=== PATIENT | male | born 1975 | race Caucasian/White ===

== ENCOUNTER → 2017-01-17 | Outpatient (CLI) | payer BC, OTHER ==
[~2017-01-17] MED LIST: NAPR1TAB9 PO; ONDA4TAB7 SL
--- NOTE | 2017-01-17 16:33 | DIAGNOSTIC IMAGING REPORT ---
CERVICAL SPINE 2 OR 3 VIEWS CLINICAL HISTORY: Neck pain with arm numbness COMPARISON STUDY: 02/09/2008 FINDINGS: The prevertebral soft tissues are normal. No fractures or subluxations are visualized. There are degenerative changes most pronounced at the C4-5 and C5-6 and C6-7 levels. IMPRESSION: Moderate degenerative change. No fractures, subluxations, or destructive lesions are visualized. Electronically signed by: Sheldon Sanders M.D. 01/17/2017 4:32 PM Dictated Date/Time: 01/17/2017 4:31 PM
[2017-01-17 17:34] LABS: BASO % 0.5 %; BASO ABS # 0.03 K/uL (0-0.2); COMPLETE YES; EOS % 3.4 %; HEMATOCRIT 43.1 % (42-52); IG% 0.2 %; LYMPH % 30.3 %; LYMPH ABS # 1.89 K/uL (1.2-3.4); MEAN CELL VOLUME 93.7 fL (80-100); MEAN CORPUSCULAR HGB CONC 35.3 g/dl (32-36); MEAN PLATELET VOLUME 10.1 fL (7.4-10.4); NEUT % 60.6 %; PLATELET COUNT 213 K/uL (130-400); WHITE BLOOD COUNT 6.23 K/uL (4.8-10.8)
[2017-01-17 18:05] LABS: ALT/SGPT 37 U/L (12-78); AST/SGOT 22 U/L (15-37); BLOOD UREA NITROGEN 13 mg/dl (7-18); C-REACTIVE PROTEIN < 0.29 mg/dl (0-0.29); CALCIUM 9.3 mg/dl (8.5-10.1); CARBON DIOXIDE 26 mmol/L (21-32); CHLORIDE 106 mmol/L (98-107); GLUCOSE 129 mg/dl (70-99); POTASSIUM 3.6 mmol/L (3.5-5.1); SODIUM 141 mmol/L (136-145)
[2017-01-17 18:15] LABS: ALB/GLOB RATIO 1.2 (0.9-2); ALKALINE PHOSPHATASE 86 U/L (45-117); RHEUMATOID FACTOR < 10.0 U/mL (0-15)
== END | disposition home or self-care (01) ==
LOC: C.RAD1850 16:09 → MERGE 16:09
PROVIDERS: ATTEND Family Medicine
DX: M25.50 Pain in unspecified joint (principal); M54.2 Cervicalgia; R20.0 Anesthesia of skin

== ENCOUNTER → 2018-05-24 | Outpatient (CLI) | payer BC | END | disposition home or self-care (01) | LOC: C.PATHSPEC 13:42 | PROVIDERS: ATTEND Plastic Surgery | DX: D23.0 Other benign neoplasm of skin of lip (principal); D23.62 Other benign neoplasm of skin of left upper limb, including shoulder ==

== ENCOUNTER 2023-06-20 18:17 | Observation (INO) ==
--- NOTE | 2023-06-20 18:35 | ED Triage Note ---
Date of Service June 20, 2023 History of Present Illness This patient was briefly evaluated while in triage. An abbreviated physical exam was performed. This patient is a 47-year-old Male who presents to the ED for evaluation of RLQ abd pain. Physical Exam GENERAL: 47 year old male. In no acute distress. SKIN: No lesions or rashes. HEART: Regular rate and rhythm. LUNGS: Clear to auscultation. ABDOMEN: Bowel sounds normoactive. No guarding or rigidity. RLQ abd ttp noted. PSYCH: Patient is pleasant and answers all questions appropriately. Initial orders for labs and / or imaging were placed and patient was placed in the waiting area until a bed is available. Please see further documentation for the full ED course.
--- NOTE | 2023-06-20 19:43 | Emergency Department Note ---
Impression & Plan Acute appendicitis, Right lower quadrant abdominal pain ED Provider Note HISTORY OF PRESENT ILLNESS: Patient is a 47-year-old male presenting with right lower quadrant abdominal marvin n. Patient reports pain started yesterday and has gotten progressively worse and more persistent. He denies any history of abdominal surgeries. 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 He denies any nausea or vomiting. Last p.o. intake was 1700 tonight, with sips of water. He denies any chest pain or shortness of breath. Denies any dysuria or hematuria. Patient denies any testicular pain. ROS: as above PHYSICAL EXAM: Constitutional: Patient appears in no acute distress. HENT: Head: Normocephalic and atraumatic. Eyes: EOMI, PERRL Mouth/Throat: Mucous membranes moist. Neck: Trachea midline. Neck supple. Cardiovascular: RRR, No murmurs, rubs or gallops. Intact distal pulses. Pulmonary/Chest: No respiratory distress. Breath sounds clear and equal bilaterally. No wheezes or rales. Abdominal: Abdomen soft, no rebound or guarding. RLQ pain. Positive McBurney's point. Back: No midline spinal tenderness, no paraspinal tenderness, no CVA tenderness. Musculoskeletal: No edema, tenderness or deformity noted. Skin: Warm and dry. No rash, erythema, pallor or cyanosis Psychiatric: Appropriate mood and affect for situation. Neurological: Alert and keenly responsive. CN II-XII grossly intact, moving all extremities equally and fully. MDM: - Vitals signs showed hypertension. - History obtained via patient. Patient presents with 24 hours of right lower quadrant abdominal pain. Had subjective fevers and chills yesterday. Decreased oral intake. Reports feeling generally unwell. Denies any history of abdominal surgeries. - Chronic conditions affecting care: HTN; HLD - Differential diagnoses include, but are not limited to: appendicitis; diverticulitis; testicular torsion; ureteral calculi - Order placed for continuous cardiac monitoring. At this time, monitor showed rate of 83 bpm with normal sinus rhythm, per my interpretation. - External medical records reviewed. - Laboratory workup interpreted by myself showed normal WBC; stable electrolytes; normal lipase - CT abdomen/pelvis with IV contrast showed acute appendicitis. - Patient given IV zosyn in ER. - General surgery consulted. Taking patient to OR. ASSESSMENT AND PLAN: Diagnosis: Right lower quadrant abdominal pain; acute appendicitis Plan: to OR Past Med/Surg History Medical History Depression Hyperlipidemia Hypertension Surgical History H/O adenoidectomy H/O foot surgery L foot and pinky toe - bone spur Hx of tonsillectomy Family History Mother Depression Alcohol abuse Anxiety Gallbladder disease S/P coronary artery stent placement Grandmother Breast cancer Myocardial infarction Diabetes Grandfather Colon cancer Back problem Heart disease Aneurysm Father Back problem Hypothyroidism Denies family history of Ovarian cancer Prostate cancer Social History Smoking Status: Current some day smoker Tobacco Type: Cigars Second Hand Exposure: Yes; Do You Dip or Chew Tobacco: No; Hx Alcohol Use: Yes Alcohol Intake Frequency: Monthly or Less Hx Substance Use: No Preferred Language: Azeri Visual Impairment: No Limitations Hearing Ability: Normal Information Technology Advisor Required: No Beliefs That Will Affect Care: None marital status: Current Living Situation: Spouse current occupational status: employed 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 How many Children do You have Comment: 3 step children Feels Safe at Home: Yes Childhood Exposure to Second-Hand Smoke: Yes Diet: regular Diet Comment: regular caffeine: Yes during the past year weight has: remained stable Dental Care, Regularly: Yes Physical Activity Frequency: Daily Seatbelt Use: always Sunscreen Use: Yes Allergies Allergies Allergy/AdvReac Type Severity Reaction Status Date / Time No Known Drug Allergies Allergy Verified 06/20/23 20:03 Home Meds Home Medications Medication Instructions Recorded Confirmed multivitamin (Multiple Vitamins 1 tab PO DAILY 01/01/20 06/20/23 tablet) fexofenadine 180 mg tablet 180 mg PO DAILY PRN Allergy 03/31/23 06/20/23 Symptoms nicotine (polacrilex) 4 mg buccal 4 mg buccal Q8H PRN Smoking 03/31/23 06/20/23 mini lozenge Cessation cholecalciferol (vitamin D3) 25 25 mcg PO DAILY 05/05/23 06/20/23 mcg (1,000 unit) capsule Previous Rx's Medication Instructions Recorded bupropion HCl 300 mg 24 hr tablet, 300 mg PO QAM #30 tabs 06/05/23 extended release Results & Data (ED) Vital Signs Vital Signs - 24 hr 06/20/23 18:31 06/20/23 19:51 06/20/23 21:00 Temperature 36.9 C Temperature Source Temporal Artery Scan Pulse Rate 90 Pulse Rate [Apical] 81 83 Pulse Rhythm [Apical] Regular Respiratory Rate 19 16 18 Respiratory Effort / Characteristics Non-Labored Respiratory Depth Normal Blood Pressure 148/99 H Blood Pressure [Right Arm] 152/101 H 151/100 H Blood Pressure Mean 115 Blood Pressure Mean [Right Arm] 118 117 Pulse Oximetry 98 97 99 Oxygen Delivery Method Room Air Room Air Sepsis Recent Fever Within 48 Hours No Sepsis New/Unexplained Change in Mental Status N/A Sepsis Action Taken by Nursing No Action Required Laboratory Data 06/20/23 19:40 06/20/23 19:40 Lab Results 06/20/23 06/20/23 06/20/23 Range/Units 19:30 19:40 19:40 WBC 9.34 (4.8-10.8) K/ul RBC 4.35 L (4.70-6.10) M/uL Hgb 14.5 (14.0-18.0) g/dl Hct 41.7 L (42.0-52.0) % MCV 95.9 (80.0-100.0) fL MCH 33.3 (25.0-34.0) pg MCHC 34.8 (32.0-36.0) g/dL RDW Std Deviation 41.5 (36.4-46.3) fL RDW Coeff of Alisa 11.9 (11.5-14.5) % Plt Count 183 (130-400) K/uL MPV 10.0 (9.4-12.4) fL Immature Gran % (Auto) 0.2 % Neut % (Auto) 72.0 % Lymph % (Auto) 13.6 % [place] % (Auto) 12.6 % Eos % (Auto) 1.1 % Baso % (Auto) 0.5 % Neut # (Auto) 6.72 H (1.40-6.50) K/uL Lymph # (Auto) 1.27 (1.2-3.4) K/uL [place] # (Auto) 1.18 H (0.11-0.59) K/uL Eos # (Auto) 0.10 (0-0.50) K/uL Baso # (Auto) 0.05 (0-0.2) K/uL Immature Gran # (Auto) 0.02 (0.01-0.20) K/uL Sodium 138 (136-145) mmol/L Potassium 4.0 (3.5-5.1) mmol/L Chloride 104 (98-107) mmol/L Carbon Dioxide 27 (21-32) mmol/L Anion Gap 7 (3-11) BUN 17 (6-23) mg/dl Creatinine 1.28 (0.6-1.4) mg/dl Est Cr Clr Drug Dosing 81.5 ml/min Est GFR ( Amer) 77.3 ml/min Est GFR (Non-Af Amer) 66.7 ml/min BUN/Creatinine Ratio 13.3 (10-20) Glucose 97 (70-99(Fasting)) mg/dl Calcium 9.7 (8.6-10.3) mg/dl Total Bilirubin 1.1 H (0.2-1.0) mg/dl AST 26 (13-39) U/L ALT 38 (7-52) U/L Alkaline Phosphatase 79 (34-104) U/L Total Protein 7.6 (6.0-8.3) gm/dl Albumin 4.6 (3.4-5.0) gm/dl Globulin 3.0 (2.5-4.0) gm/dl Albumin/Globulin Ratio 1.5 (0.9-2) Lipase 14 (11-82) U/L Urine Color Yellow Urine Appearance Clear (Clear) Urine pH 6.5 (4.5-7.5) Ur Specific [place] 1.006 (1.000-1.030) Urine Protein Negative (Negative) Urine Glucose (UA) Negative (Negative) Urine Ketones Negative (Negative) Urine Blood Trace H (Negative) Urine Nitrite Negative (Negative) Urine Bilirubin Negative (Negative) Urine Urobilinogen Negative (Negative) Ur Leukocyte Esterase Trace H (Negative) Urine RBC 0-4 (0-4) /hpf Urine WBC 0-5 (0-5) /hpf Ur Epithelial Cells 0-5 (0-5) /lpf Urine Bacteria Negative (Negative) Administered Medications Discontinued Medications Piperacillin Sod/Tazobactam Sod (Zosyn) 4.5 gm in 120 mls @ 240 mls/hr IV NOW ONE Stop: 06/20/23 21:36 Last Admin: 06/20/23 21:18 Dose: 240 mls/hr Documented By: MESHA Ioversol (Optiray 320 100ml) 90 ml IV ONCE ONE Stop: 06/20/23 20:45 Last Admin: 06/20/23 20:46 Dose: 90 ml Documented By: JANENE Imaging Data Radiologist's Impression: Abdomen/Pelvis CT 06/20/23 18:36 CR Exam(s): CT ABDOMEN + PELVIS With Contrast IV Amt: 90 ml opti 320 EXAM: CT Abdomen and Pelvis With Intravenous Contrast CLINICAL HISTORY: Reason for exam: RLQ abd pain. TECHNIQUE: Axial computed tomography images of the abdomen and pelvis with intravenous contrast. CTDI is 17.77 mGy and DLP is 982.8 mGy-cm. Automated exposure control was utilized for the study. A dose lowering technique was utilized adhering to the principles of ALARA. CONTRAST: Patient received 90 ml opti 320 of IV contrast COMPARISON: No relevant prior studies available. FINDINGS: Lung bases: Unremarkable. No mass. No consolidation. ABDOMEN: Liver: Unremarkable. No mass. Gallbladder and bile ducts: Unremarkable. No calcified stones. No ductal dilation. Pancreas: Unremarkable. No mass. No ductal dilation. Spleen: Unremarkable. No splenomegaly. Adrenals: Unremarkable. No mass. Kidneys and ureters: Unremarkable. No solid mass. No hydronephrosis. Stomach and bowel: Unremarkable. No obstruction. No mucosal thickening. PELVIS: Appendix: Positive for acute appendicitis, consisting of a distended appendix measuring up to 13 mm with circumferential wall thickening and mild periappendiceal fat stranding. Bladder: Unremarkable. No mass. Reproductive: Unremarkable as visualized. ABDOMEN and PELVIS: Intraperitoneal space: Unremarkable. No free air. No significant fluid collection. Bones/joints: Displaced narrowing at L5-S1. No acute fracture. No dislocation. Soft tissues: Unremarkable. Vasculature: Unremarkable. No abdominal aortic aneurysm. Lymph nodes: Unremarkable. No enlarged lymph nodes. IMPRESSION: Positive for acute appendicitis, consisting of a distended appendix measuring up to 13 mm with circumferential wall thickening and mild periappendiceal fat stranding. Communications: Verify Receipt Electronically signed by: Mike Mcknight MD 08/22/23 21:02 PM Discharge Plan Visit Data Chief Complaint: Abdominal Pain Stated Complaint: ABD PAIN ED Provider: Norma Anders Discharge Problem: Acute appendicitis, Right lower quadrant abdominal pain Forms Stand Alone Forms: My [facility] [employer] Prescriptions Prescriptions: No Action multivitamin [Multiple Vitamins] Tablet 1 tab PO DAILY cholecalciferol (vitamin D3) 25 mcg (1,000 unit) capsule 25 mcg PO DAILY bupropion HCl 300 mg tablet extended release 24 hr 300 mg PO QAM Qty: 30 1RF fexofenadine 180 mg tablet 180 mg PO DAILY PRN (Reason: Allergy Symptoms) nicotine (polacrilex) 4 mg mini lozenge 4 mg buccal Q8H PRN (Reason: Smoking Cessation) Referrals Referrals: Macrina Joshi DO [Primary Care Provider] -
[2023-06-20 19:55] LABS: Appearance Urine Clear (Clear); Bilirubin Urine Negative (Negative); Blood Urine Trace (Negative); Color Urine Yellow; Glucose Urine UA Negative (Negative); Ketones Urine Negative (Negative); Leukocyte Esterase Urine Trace (Negative); Nitrite Urine Negative (Negative); Protein Urine Negative (Negative); Specific Gravity Urine 1.006 (1.000-1.030); Urobilinogen Urine Negative (Negative); pH Urine 6.5 (4.5-7.5)
[2023-06-20 20:00] LABS: Basophils # (auto) 0.05 K/uL (0-0.2); Basophils % (auto) 0.5 %; Eosinophils % (auto) 1.1 %; Hematocrit (blood only) 41.7 % (42.0-52.0); Hemoglobin 14.5 g/dl (14.0-18.0); Immature Granulocytes # (auto) 0.02 K/uL (0.01-0.20); Immature Granulocytes % (auto) 0.2 %; Lymphocytes # (auto) 1.27 K/uL (1.2-3.4); Lymphocytes % (auto) 13.6 %; Mean Corpuscular Hemoglobin 33.3 pg (25.0-34.0); Mean Corpuscular Hgb Conc 34.8 g/dL (32.0-36.0); Mean Corpuscular Volume 95.9 fL (80.0-100.0); Monocytes # (auto) 1.18 K/uL (0.11-0.59); Monocytes % (auto) 12.6 %; Neutrophils # (auto) 6.72 K/uL (1.40-6.50); Platelet Count 183 K/uL (130-400); RDW Coefficient of Variation 11.9 % (11.5-14.5); RDW Standard Deviation 41.5 fL (36.4-46.3); Red Blood Count 4.35 M/uL (4.70-6.10); White Blood Count 9.34 K/ul (4.8-10.8)
[2023-06-20 20:06] LABS: Bacteria Urine Negative (Negative); Epithelial Cell Urine 0-5 /lpf (0-5); WBC Urine 0-5 /hpf (0-5)
[2023-06-20 20:08] LABS: RBC Urine 0-4 /hpf (0-4)
[2023-06-20 20:15] LABS: Albumin Globulin Ratio 1.5 (0.9-2); Albumin Level 4.6 gm/dl (3.4-5.0); BUN Creatinine Ratio 13.3 (10-20); Bilirubin,Total 1.1 mg/dl (0.2-1.0); Calcium 9.7 mg/dl (8.6-10.3); Creatinine Clr Calc Pharmacy 81.5 ml/min; Est GFR (African American) 77.3 ml/min; Est GFR (Non-African American) 66.7 ml/min; Total Protein 7.6 gm/dl (6.0-8.3)
[2023-06-20] MEDS ORDERED: OPTIRAY 320 100ml IV ONE (20:44)
--- NOTE | 2023-06-20 21:04 | CT Scan Report ---
Exam(s): CT ABDOMEN + PELVIS With Contrast IV Amt: 90 ml opti 320 EXAM: CT Abdomen and Pelvis With Intravenous Contrast CLINICAL HISTORY: Reason for exam: RLQ abd pain. TECHNIQUE: Axial computed tomography images of the abdomen and pelvis with intravenous contrast. CTDI is 17.77 mGy and DLP is 982.8 mGy-cm. Automated exposure control was utilized for the study. A dose lowering technique was utilized adhering to the principles of ALARA. CONTRAST: Patient received 90 ml opti 320 of IV contrast COMPARISON: No relevant prior studies available. FINDINGS: Lung bases: Unremarkable. No mass. No consolidation. ABDOMEN: Liver: Unremarkable. No mass. Gallbladder and bile ducts: Unremarkable. No calcified stones. No ductal dilation. Pancreas: Unremarkable. No mass. No ductal dilation. Spleen: Unremarkable. No splenomegaly. Adrenals: Unremarkable. No mass. Kidneys and ureters: Unremarkable. No solid mass. No hydronephrosis. Stomach and bowel: Unremarkable. No obstruction. No mucosal thickening. PELVIS: Appendix: Positive for acute appendicitis, consisting of a distended appendix measuring up to 13 mm with circumferential wall thickening and mild periappendiceal fat stranding. Bladder: Unremarkable. No mass. Reproductive: Unremarkable as visualized. ABDOMEN and PELVIS: Intraperitoneal space: Unremarkable. No free air. No significant fluid collection. Bones/joints: Displaced narrowing at L5-S1. No acute fracture. No dislocation. Soft tissues: Unremarkable. Vasculature: Unremarkable. No abdominal aortic aneurysm. Lymph nodes: Unremarkable. No enlarged lymph nodes. IMPRESSION: Positive for acute appendicitis, consisting of a distended appendix measuring up to 13 mm with circumferential wall thickening and mild periappendiceal fat stranding. Communications: Verify Receipt Electronically signed by: Mike Mcknight MD 06/20/23 21:02 PM
[2023-06-20] MEDS ORDERED: PIPERACILLIN/TAZOBACTAM 4.5 GM/120 ML BAG IV ONE (21:07)
--- NOTE | 2023-06-20 21:29 | History & Physical Report ---
Date of Service June 20, 2023 Assessment & Plan (1) Appendicitis: Plan: Due to the patient's clinical presentation and findings on imaging we will admit the patient to the hospital proceeding as follows: Analgesia be provided Antiemetics will be provided We will hydrate with IV fluids We will initiate antibiotics. The treating emergency room physician is already started Zosyn which we will continue We will keep the patient n.p.o. We are tentatively planning on an appendectomy with Dr. Pond this evening. Additional recommendations be forthcoming based on operative findings and the patient's postoperative recovery SCDs were used for DVT prevention, no chemical means due to planned surgery The patient be a level 1 full code History of Present Illness Chief Complaint: Abdominal pain Primary Care Provider: Macrina Joshi DO This is a 47-year-old female who developed abdominal pain proximally 24 hours ago. He says the pain is primary located in the right lower quadrant without radiation. He notes the pain is worse with palpation of his abdomen and seems to be slightly better when he lies still. He has not had any fevers. He does also deny nausea or vomiting. He denies ever having any abdominal surgeries in the past Since arrival to the hospital patient has had labs and imaging which independent reviewed. A CT scan of the abdomen showed the patient had a distended appendix measuring approximate 13 mm with wall thickening and mild periappendiceal fat stranding. Labs include a CBC her white blood cell count, hemoglobin, platelet count were normal. His hematocrit was slightly low at 41.7. Chemistry profile showed sodium, potassium, BUN, and creatinine were normal. There is no elevation of patient's LFTs other than a slight elevation of the total bilirubin at 1.1. His lipase is not elevated. Urinalysis did show trace leukocyte Estrace but was otherwise not indicative of infection. At the time of my interview he was resting comfortably in bed he was in no distress. Allergies Allergy/AdvReac Type Severity Reaction Status Date / Time No Known Drug Allergies Allergy Verified 06/20/23 20:03 Home Medications Medication Instructions Recorded Confirmed Type multivitamin (Multiple Vitamins 1 tab PO DAILY 01/01/20 06/20/23 History tablet) fexofenadine 180 mg tablet 180 mg PO DAILY PRN Allergy 03/31/23 06/20/23 History Symptoms nicotine (polacrilex) 4 mg buccal 4 mg buccal Q8H PRN Smoking 03/31/23 06/20/23 History mini lozenge Cessation cholecalciferol (vitamin D3) 25 25 mcg PO DAILY 05/05/23 06/20/23 History mcg (1,000 unit) capsule bupropion HCl 300 mg 24 hr tablet, 300 mg PO QAM #30 tabs 06/05/23 06/20/23 Rx extended release Past Med/Surg History Medical History Depression Hyperlipidemia Hypertension Surgical History H/O adenoidectomy H/O foot surgery L foot and pinky toe - bone spur Hx of tonsillectomy Family History Mother Depression Alcohol abuse Anxiety Gallbladder disease S/P coronary artery stent placement Grandmother Breast cancer Myocardial infarction Diabetes Grandfather Colon cancer Back problem Heart disease Aneurysm Father Back problem Hypothyroidism Denies family history of Ovarian cancer Prostate cancer Social History Smoking Status: Current some day smoker Tobacco Type: Cigars Second Hand Exposure: Yes; Do You Dip or Chew Tobacco: No; Hx Alcohol Use: Yes Alcohol Intake Frequency: Monthly or Less Hx Substance Use: No Preferred Language: Nepalese Visual Impairment: No Limitations Hearing Ability: Normal Brick Yard Hand Required: No Beliefs That Will Affect Care: None marital status: Current Living Situation: Spouse current occupational status: employed 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 How many Children do You have Comment: 3 step children Feels Safe at Home: Yes Childhood Exposure to Second-Hand Smoke: Yes Diet: regular Diet Comment: regular caffeine: Yes during the past year weight has: remained stable Dental Care, Regularly: Yes Physical Activity Frequency: Daily Seatbelt Use: always Sunscreen Use: Yes Review of Systems Constitutional: no fever Eyes: + corrective lenses Ear, Nose, Mouth, Throat: no hearing loss Respiratory: no cough and no dyspnea Cardiovascular: no chest pain Gastrointestinal: as per Subjective / HPI Genitourinary: no dysuria Musculoskeletal: no back pain Integumentary: no rash Neurologic: no localized weakness Physical Exam Constitutional: WD/WN, vitals as above Eyes: Wears glasses ENMT: Ears: no hearing impairment and no external ear abnormality Mouth: no oropharynx abnormality Neck: trachea midline Respiratory: normal respiratory effort, lungs clear to auscultation Cardiovascular: Rate/Rhythm: regular rate and regular rhythm Gastrointestinal (Abdomen): Abdomen is soft and nondistended. It is nonrigid. Patient did have significant tenderness in the right lower quadrant over McBurney's point with palpation. He did have some slight rebound tenderness as well. Musculoskeletal: No calf tenderness Skin: no rashes Neurologic: moves all extremities Psychiatric: A+Ox3, euthymic affect Results & Data Results & Data Vital Signs (Past 12 Hours) Vital Signs Temp Pulse Pulse Resp BP BP Pulse Ox 06/20/23 21:00 83 18 151/100 H 99 06/20/23 19:51 81 16 152/101 H 97 06/20/23 18:31 36.9 C 90 19 148/99 H 98 O2 Del Method 06/20/23 21:00 06/20/23 19:51 Room Air 06/20/23 18:31 Room Air Supervising Physician Co-Signing Physician Notes Dr. Blanc above assessment and plan Patient seen in the emergency room-presenting the emergency room with acute abdominal pain Found on CT scan to have acute appendicitis Patient is for laparoscopic appendectomy possible open appendectomy We will proceed as soon as possible, he has been given IV antibiotics PG Care Time/CCT Total # of Minutes Spent Total Time Spent with Patient: Total time spent is greater than 50% in coordination of care (as documented) at patient's floor/unit and/or counseling patient: Coding Level of Care Code 90893 INT INP/OBS CARE 3/75MIN Diagnoses Appendicitis K37
[2023-06-20] MEDS ORDERED: ONDANSETRON INJ 2 MG/ML 2 ML VIAL IV PRN ×3 (21:30→23:34)
[2023-06-20] MEDS ORDERED: MoRPHine SULFATE 4 MG/ML 1 ML CARP\\VIAL IV PRN (21:30)
[2023-06-20] MEDS ORDERED: ACETAMINOPHEN 1,000 MG/100 ML VIAL IV PRN (21:30)
[2023-06-20] MEDS ORDERED: SODIUM CHLORIDE 0.9% 1000ML 1,000 ML IV SCH (21:30)
[2023-06-20] MEDS ORDERED: ePHEDrine sulfate 50 MG/ML AMP IV PRN (21:35)
[2023-06-20] MEDS ORDERED: fentaNYL citrate PF 100 MCG/2 ML VIAL IV PRN (21:35)
[2023-06-20] MEDS ORDERED: ATROPINE SULFATE 0.1 MG/ML 10ML SYR IV PRN (21:35)
--- NOTE | 2023-06-20 21:35 | Anesthesiology Consultation ---
Date of Service June 20, 2023 Assessment & Plan (1) Encounter for pre-operative examination: Chart Review Chart Review: Acceptable Risk for Surgery and Patient NOT seen in Pre Admission Testing Consults Requested none History Surgery Operation Date: 06/20/23 22:00 Proposed Procedures p Laparoscopic Appendectomy - Alexis Pond MD, FACS Height/Weight Height: 6 ft 1 in Weight: 93.4 kg Allergies Allergy/AdvReac Type Severity Reaction Status Date / Time No Known Drug Allergies Allergy Verified 06/20/23 20:03 Medications Home Medications Medication Instructions Recorded Confirmed Last Taken multivitamin (Multiple Vitamins 1 tab PO DAILY 01/01/20 06/20/23 06/20/23 14:30 tablet) fexofenadine 180 mg tablet 180 mg PO DAILY PRN Allergy 03/31/23 06/20/23 Unknown Symptoms nicotine (polacrilex) 4 mg buccal 4 mg buccal Q8H PRN Smoking 03/31/23 06/20/23 06/20/23 16:00 mini lozenge Cessation cholecalciferol (vitamin D3) 25 25 mcg PO DAILY 05/05/23 06/20/23 06/20/23 14:30 mcg (1,000 unit) capsule bupropion HCl 300 mg 24 hr tablet, 300 mg PO QAM #30 tabs 06/05/23 06/20/23 06/20/23 14:30 extended release Active Medications Generic Name Dose Route Start Last Admin Trade Name Freq PRN Reason Stop Dose Admin Piperacillin Sod/Tazobactam Sod 4.5 gm in 120 mls @ 240 mls/hr 06/20/23 21:07 06/20/23 21:18 Zosyn IV 06/20/23 21:36 240 mls/hr NOW ONE Administration Past Medical History Medical History Depression Hyperlipidemia Hypertension Past Family History Family History Mother Depression Alcohol abuse Anxiety Gallbladder disease S/P coronary artery stent placement Grandmother Breast cancer Myocardial infarction Diabetes Grandfather Colon cancer Back problem Heart disease Aneurysm Father Back problem Hypothyroidism Denies family history of Ovarian cancer Prostate cancer Past Surgical History Surgical History H/O adenoidectomy H/O foot surgery L foot and pinky toe - bone spur Hx of tonsillectomy Social History Smoking Status: Current some day smoker Do You Dip or Chew Tobacco: No Hx Alcohol Use: Yes Hx Substance Use: No Physical Exam Vital Signs Last Vital Signs Temp 98.4 F 06/20/23 18:31 Pulse 83 06/20/23 21:00 Resp 18 06/20/23 21:00 BP 151/100 H 06/20/23 21:00 Pulse Ox 99 06/20/23 21:00 O2 Del Method Room Air 06/20/23 19:51 Testing Laboratory Results 06/20/23 19:40 06/20/23 19:40 Urine Color Yellow 06/20/23 19:30 Urine Appearance Clear (Clear) 06/20/23 19:30 Urine pH 6.5 (4.5-7.5) 06/20/23 19:30 Ur Specific [place] 1.006 (1.000-1.030) 06/20/23 19:30 Urine Protein Negative (Negative) 06/20/23 19:30 Urine Glucose (UA) Negative (Negative) 06/20/23 19:30 Urine Ketones Negative (Negative) 06/20/23 19:30 Urine Nitrite Negative (Negative) 06/20/23 19:30 Ur Leukocyte Esterase Trace (Negative) H 06/20/23 19:30 Urine RBC 0-4 /hpf (0-4) 06/20/23 19:30 Urine WBC 0-5 /hpf (0-5) 06/20/23 19:30 Ur Epithelial Cells 0-5 /lpf (0-5) 06/20/23 19:30
[2023-06-20] MEDS ORDERED: fentaNYL citrate PF 100 MCG/2 ML VIAL ONE ×2 (21:36)
[2023-06-20] MEDS ORDERED: ROCURONIUM BROMIDE 10 MG/ML 5 ML VIAL IV ONE (21:37)
[2023-06-20] MEDS ORDERED: DEXAMETHASONE SOD INJ 4 MG/ML VIAL ONE (21:37)
[2023-06-20] MEDS ORDERED: MIDAZOLAM HCL 1 MG/ML 2ML VIAL ONE (21:37)
[2023-06-20] MEDS ORDERED: ONDANSETRON INJ 2 MG/ML 2 ML VIAL ONE (21:37)
[2023-06-20] MEDS ORDERED: PROPOFOL IV EMULSION 10 MG/ML 20 ML VIAL IV ONE (21:37)
[2023-06-20] MEDS ORDERED: SUCCINYLCHOLINE 100MG/5ML SYR IV ONE (21:37)
[2023-06-20] MEDS ORDERED: LIDOCAINE 2% 2 ML VIAL/AMP(20MG/ML) INFIL ONE (21:37)
[2023-06-20] MEDS ORDERED: BUPIVACAINE 0.5 % 5 MG/1 ML MPF 30ML VIAL ONE (21:41)
[2023-06-20] MEDS ORDERED: SUGAMMADEX SODIUM 200 MG/2 ML VIAL IV ONE (22:22)
[2023-06-20] MEDS ORDERED: ACETAMINOPHEN 1,000 MG/100 ML VIAL IV ONE (22:34)
--- NOTE | 2023-06-20 22:34 | Post Operative Brief Note ---
PG Immediate Post Op with CF Date of Surgery June 20, 2023 Pre & Post Diagnosis Operation Date: 06/20/23 22:00 Pre-Op Diagnosis: Appendicitis Post-Op Diagnosis: Appendicitis I identified the patient and participated in the time-out.: Yes Procedure Operation Date: 06/20/23 22:00 Actual Procedures p Laparoscopic Appendectomy(Not Applicable) - Alexis Pond MD, FACS Surgeon Alexis Pond MD, FACS Hypoid Gear Tester susi paul Estimated Blood Loss 5 Findings Consistent with Post-Op Diagnosis Acute appendicitis without abscess Specimens Specimen Description: A) Appendix
--- NOTE | 2023-06-20 22:46 | Operative Report ---
PG Post Operative Report Pre & Post Diagnosis Operation Date: 06/20/23 22:00 Pre-Op Diagnosis: Appendicitis Post-Op Diagnosis: Appendicitis I identified the patient and participated in the time-out.: Yes Procedure Operation Date: 06/20/23 22:00 Actual Procedures p Laparoscopic Appendectomy(Not Applicable) - Alexis Pond MD, FACS Surgeon Alexis Pond MD, FACS [employer]otive [employer]ision Repair Instructor susi paul Estimated Blood Loss 5 Findings Consistent with Post-Op Diagnosis Specimens Appendix Description of Procedure Patient brought in the operating room placed operating room table in the supine position Pneumatic stockings orogastric tube were placed and his abdomen was prepped and draped in usual fashion Half percent plain Marcaine was used to anesthetize all incisions Incision made above the umbilicus carried dissection down to the fascia placing a varies needle producing pneumoperitoneum 11 mm port was placed at this level the camera was then passed Under visualization a 5 mm port was placed suprapubically and a 12 mm port left lower quadrant The appendix was identified it was very large and inflamed but there was no abscess The base the appendix was transected using a Endo UMESH brown load The mesoappendix was then transected using a second Endo UMESH brown load After appropriate irrigation hemostasis the appendix was put placed into an Endobag and removed through the left lower quadrant port site All ports were then removed Fascia at the umbilicus and left lower quadrant closed using 0 Vicryl suture Skin reapproximated using subcuticular 4-0 Monocryl, Dermabond placed at the umbilicus and suprapubic area and then Steri-Strips left lower quadrant My refinery operator assistant help with prepping draping removal of the appendix and closure of the wounds Patient transferred recovery room in stable condition I attest to the content of the Intraoperative Record and any orders documented therein. Any exceptions are noted below.
--- NOTE | 2023-06-20 23:02 | Anesthesiology Progress Note ---
Date of Service June 20, 2023 Anesthesia Post Procedure Vital Signs Vital Signs: Temp Pulse Pulse Resp BP BP Pulse Ox 06/20/23 22:50 85 20 97 06/20/23 22:50 149/100 H 06/20/23 22:46 91 H 15 97 06/20/23 22:46 97.3 F L 152/99 H 06/20/23 22:45 90 12 06/20/23 21:00 83 18 151/100 H 99 06/20/23 19:51 81 16 152/101 H 97 06/20/23 18:31 98.4 F 90 19 148/99 H 98 O2 Del Method 06/20/23 22:50 06/20/23 22:50 06/20/23 22:46 06/20/23 22:46 06/20/23 22:45 06/20/23 21:00 06/20/23 19:51 Room Air 06/20/23 18:31 Room Air Pain Intensity Right Lower Abdomen: Pain Intensity: 3 Transfer of Care Handoff Completed per policy Notes Mental Status: alert / awake / arousable and participated in evaluation Patient Amnestic to Procedure: Yes Nausea / Vomiting: adequately controlled Pain: adequately controlled Airway Patency, RR, SpO2: stable & adequate BP & HR: stable & adequate Hydration State: stable & adequate Anesthetic Complications: no major complications apparent and Pt Satisfied with anesthetic care
[2023-06-20] MEDS ORDERED: oxyCODONE HCL IR 5 MG TAB (IMMEDIATE RELEASE) PO PRN (23:34)
[2023-06-20] MEDS ORDERED: NICOTINE POLACRILEX 2 MG GUM MT PRN (23:38)
[2023-06-20] MEDS: SODIUM CHLORIDE 0.9% 1000ML 1,000 ML IV SCH (23:44)
[2023-06-21] MEDS: PIPERACILLIN/TAZOBACTAM 4.5 GM in DEXTROSE 5% 100 ML IV SCH ×3 (04:00→19:39)
[2023-06-21] MEDS ORDERED: IBUPROFEN 600 MG TAB PO PRN (05:30)
[2023-06-21 06:20] LABS: Basophils # (auto) 0.04 K/uL (0-0.2); Basophils % (auto) 0.2 %; Eosinophils # (auto) 0.01 K/uL (0-0.50); Eosinophils % (auto) 0.1 %; Hematocrit (blood only) 37.6 % (42.0-52.0); Hemoglobin 13.4 g/dl (14.0-18.0); Immature Granulocytes # (auto) 0.08 K/uL (0.01-0.20); Immature Granulocytes % (auto) 0.4 %; Lymphocytes # (auto) 1.36 K/uL (1.2-3.4); Lymphocytes % (auto) 7.6 %; Mean Corpuscular Hemoglobin 34.3 pg (25.0-34.0); Mean Corpuscular Hgb Conc 35.6 g/dL (32.0-36.0); Mean Corpuscular Volume 96.2 fL (80.0-100.0); Mean Platelet Volume 10.3 fL (9.4-12.4); Monocytes # (auto) 1.05 K/uL (0.11-0.59); Monocytes % (auto) 5.8 %; Neutrophils # (auto) 15.41 K/uL (1.40-6.50); Neutrophils % (auto) 85.9 %; Platelet Count 227 K/uL (130-400); RDW Coefficient of Variation 11.9 % (11.5-14.5); RDW Standard Deviation 41.6 fL (36.4-46.3); Red Blood Count 3.91 M/uL (4.70-6.10); White Blood Count 17.95 K/ul (4.8-10.8)
--- NOTE | 2023-06-21 06:31 | Communication Note ---
Date of Service: June 21, 2023 This patient ambulated with assistance to the restroom and shortly after having a bowel movement had a near syncopal episode. The patient came to in a few minutes and was able to return to his bed. Patient was noted to have a blood pressure of 92/60. His blood sugar was checked which was 117. The patient then subsequently became diaphoretic and the nursing staff therefore called a marie catalan. I responded to the bedside within approximately 5 minutes. Upon my arrival the patient was lying in bed he was slightly diaphoretic. His blood pressure at this time is 120/77 and his pulse was in the 70s. An EKG performed showed normal sinus rhythm without changes indicative of acute ischemia. Chest x-ray was performed that did not show any evidence of pneumothorax. The patient was noted to have a large gastric bubble underneath the left hemidiaphragm. Remainder physical exam showed that his heart rate was regular rate and rhythm. Lungs were clear to auscultation. The patient's abdomen was soft with minimal distention. All of his laparoscopic incisions were clean, dry, and intact. The patient's feet were warm and well-perfused. The patient was able to follow simple commands and move all extremities without noted focal deficits. I did asked the patient about this episode and prior to these events the patient specifically denied any chest pain or shortness of breath but he did feel slightly nauseated. When the nursing staff was cleansing the patient after this these events he was noted to have some blood from when he had a bowel movement. The patient notes that this does happen from time to time. Due to the above noted events we will upgrade the patient to a telemetry floor. Labs including a CBC, CMP, magnesium, and troponin have been checked and are pending. Upon transfer we will discontinue the patient's Motrin as we do not want to precipitate any bleeding. We will also repeat a CBC at noon today which was approximately 6 hours from the labs that were just drawn. A hospitalist consultation will be requested. I have discussed the case with the on-call hospitalist and the patient be evaluated later this morning. Dr. Pond was at bedside he did update the patient's via phone. Further recommendations will be based on patient's clinical course as unfolds as well as pending laboratories. At this conclusion of these events the patient was noted to be hemodynamically stable. Initial labs that came back show a white blood cell count of 17.9. Hemoglobin and hematocrit are 13.4 and 37.6. (This level of hemoglobin and hematocrit did not represent a precipitous drop from preoperative values). Platelet count is noted to be within normal range.
[2023-06-21 06:42] LABS: Albumin Globulin Ratio 1.5 (0.9-2); Albumin Level 4.1 gm/dl (3.4-5.0); Bilirubin,Total 1.5 mg/dl (0.2-1.0); Calcium 9.4 mg/dl (8.6-10.3); Creatinine Clr Calc Pharmacy 80.9 ml/min; Est GFR (African American) 76.6 ml/min; Est GFR (Non-African American) 66.1 ml/min; Globulin 2.8 gm/dl (2.5-4.0); Potassium 4.2 mmol/L (3.5-5.1); Total Protein 6.9 gm/dl (6.0-8.3)
--- NOTE | 2023-06-21 06:54 | Surgery Progress Note ---
Date of Service June 21, 2023 Assessment & Plan (1) Syncopal episodes: Plan: See communication note by Rinku Portillo Patient apparently was on the toilet and had a syncopal episode, he did not fall or strike his head When I saw him he was in bed his pulse was normal his blood pressure was 122 systolic he was awake and responsive His conjunctiva were pink, his abdomen was not significantly distended or tender and relatively soft We did obtain labs and his H&H showed hemoglobin of 13.1 and initially it was 14.5 so not a significant drop The may have had some bloody stool however it was flushed but there was some blood when the nurses wiped For now we will monitor him in the telemetry unit-recheck his H&H, obviously monitor his vital signs I did discuss this with his Maria Elena I suspect he could have some drop in his H&H, monitor for GI bleeding, Admission and Anticipated Discharge Date Admission Date: June 20, 2023 Results & Data Vital Signs (Past 12 Hours) Vital Signs Temp Pulse Pulse Pulse Resp BP BP 06/21/23 06:44 36.4 C L 77 18 95/62 L 06/21/23 05:19 81 125/74 06/21/23 06:26 36.5 C 72 92/60 L 06/21/23 03:59 36.7 C 78 16 110/68 06/21/23 01:34 36.7 C 72 16 131/81 06/21/23 00:00 36.6 C 73 16 141/92 H 06/21/23 00:32 36.7 C 64 16 131/81 06/21/23 00:00 36.6 C 73 16 141/92 H 06/20/23 23:30 36.6 C 68 18 148/88 H 06/20/23 23:10 36.3 C L 78 20 06/20/23 23:10 149/102 H 06/20/23 23:00 36.1 C L 82 19 06/20/23 23:00 144/97 H 06/20/23 22:50 85 20 06/20/23 22:50 149/100 H 06/20/23 22:46 91 H 15 06/20/23 22:46 36.3 C L 152/99 H 06/20/23 22:45 90 12 06/20/23 21:00 83 18 06/20/23 19:51 81 16 BP Pulse Ox O2 Del Method 06/21/23 06:44 96 Room Air 06/21/23 05:19 97 Room Air 06/21/23 06:26 95 Room Air 06/21/23 03:59 96 Room Air 06/21/23 01:34 98 Room Air 06/21/23 00:00 98 Room Air 06/21/23 00:32 98 Room Air 06/21/23 00:00 98 Room Air 06/20/23 23:30 96 Room Air 06/20/23 23:10 97 Room Air 06/20/23 23:10 06/20/23 23:00 98 06/20/23 23:00 06/20/23 22:50 97 06/20/23 22:50 06/20/23 22:46 97 06/20/23 22:46 06/20/23 22:45 06/20/23 21:00 151/100 H 99 06/20/23 19:51 152/101 H 97 Room Air PG Care Time/CCT Total # of Minutes Spent Total Time Spent with Patient: Total time spent is greater than 50% in coordination of care (as documented) at patient's floor/unit and/or counseling patient: Coding Level of Care Code 63877 Post Operative Follow-Up Diagnoses Syncopal episodes R55
--- NOTE | 2023-06-21 07:24 | XRay Report ---
XR chest 1V portable HISTORY: 47 years-old Male near syncope acute syncope COMPARISON: 02/09/2008 TECHNIQUE: AP view of the chest FINDINGS: Cardiomediastinal and hilar silhouettes are within normal limits. No pneumothorax, pleural effusion, airspace consolidation or pulmonary edema. Bones appear normal. IMPRESSION: No acute process. ACT 112: Negative or not required by law. The above report was generated using voice recognition software. It may contain grammatical, syntax o r spelling errors. Electronically signed by: Jude Tatum M.D. 06/21/2023 7:22 AM
--- NOTE | 2023-06-21 08:11 | Hospitalist Consultation ---
Date of Consultation June 21, 2023 Assessment & Plan (1) Acute appendicitis: POD#1 s/p Laparoscopic Appendectomy(Not Applicable) - Alexis Pond MD, FACS. EBL 5cc IV Zosyn NS @ 100cc/hr per primary service Pain control/bowel regimen/PT/OT per primary service DVT proph: SCDs Developed episode of syncope this morning while attempting to use bathroom. Suspect vasovagal in nature, similar episode in past w/ straining but didn't pass out. Some blood noted on toilet paper/around stool, but not filling bowel. No heavy NSAID/alcohol use.. He reports he wasn't trying to have BM but rather urinate. No roldan w/ procedure reported. ?micurition syncopal also not excluded. NO significant murmur on exam/hypoxia to suggest valvular in nature or PE at present. He did note when injuring finger in the past/saw blood he also had an episode of feeling like he was going to pass out. Leukocytosis suspected reactive, no fevers. CXR clear on check. Can check UA for completeness, fecal occult. Reports having c-scope ~10 years ago that was unremarkable Pepcid IVP x 1, continue daily. No dark stools/melena to suggest UGIB at present RN to obtain repeat orthostatics, remains on IVF per primary service. Of note, recently had his wellbutrin increased from 150 to 300mg daily for depression/fatigue and did report increased issues with sleeping/anxiety/feeling on edge. Will decrease to 150mg for AM and consider titrating off w/ PCP/alternative agent Monitor blood counts this afternoon to ensure no drop in hgb given bleeding reported (2) Depression: continue wellbutrin. reports issues w/ sleeping as well and recent increase from 150 to 300mg daily discussed fatigue could have been from his bad appendix Will plan to decrease to 150mg po daily for AM, consider tapering off w/ PCP and consideration for alternative agent (3) Syncopal episodes: as above, suspect vasovagal in nature monitoring on telemetry, checking orthostatics. Doing well this morning during eval, to continue to monitor for any issues. (4) Symptoms consistent with irritable bowel syndrome: monitor bowel movements, fecal occult as above consider GI in f/u outpatient given blood in stool, fecal occult ordered as above as well (5) Vitamin D deficiency: Plan Thank you for allowing hospitalist service to participate in the care of Mr Baxter. Will follow along. Please call with any questions/concerns. Supervising Physician Co-Signing Physician Notes The patient was not seen by me. The chart was reviewed. Case discussed with GLADYS Ahuja. Agree with assessment and plan History of Present Illness Reason for Consultation: near syncope Requesting Physician: Dr Pond Attending Physician: Alexis Pond MD, FACS History of Present Illness 47yo male post-op appendectomy, sitting up in bed, at bedside, no acute distress. Was attempting to use the restroom (per patient to urinate) and had bowel movement with some blood on toilet paper which he noted he had in the past. Had a c-scope about a year ago, possibly with [facility] and was told no issue s. No chronic NSAID use, some occasional aleeve use with back pain/work. No chest pain/shortness of breath but reports pain w/ abdomen w/ taking a breath -- incentive spirometer on bedside in package- encouraged use. No further lightheaded/dizziness. Discussed checking orthostatic vitals, if stable/no symptoms to ambulate in the pond. He was hopeful for dc but understands staying inpatient overnight to monitor/repeat blood counts given blood in stool. Also discussed reflux -- denies but does use nicotine lozenges, reports was on some medications for "about 10 days" before but nothing chronic. Will order dose of pepcid/monitor. Anticipating possible discharge tomorrow if remaining stable. Allergies Allergy/AdvReac Type Severity Reaction Status Date / Time No Known Drug Allergies Allergy Verified 06/20/23 20:03 Home Medications Medication Instructions Recorded Confirmed Type multivitamin (Multiple Vitamins 1 tab PO DAILY 01/01/20 06/20/23 History tablet) fexofenadine 180 mg tablet 180 mg PO DAILY PRN Allergy 03/31/23 06/20/23 History Symptoms nicotine (polacrilex) 4 mg buccal 4 mg buccal Q8H PRN Smoking 03/31/23 06/20/23 History mini lozenge Cessation cholecalciferol (vitamin D3) 25 25 mcg PO DAILY 05/05/23 06/20/23 History mcg (1,000 unit) capsule bupropion HCl 300 mg 24 hr tablet, 300 mg PO QAM #30 tabs 06/05/23 06/20/23 Rx extended release Patient History Medical History Depression Hyperlipidemia Hypertension Surgical History H/O adenoidectomy H/O foot surgery L foot and pinky toe - bone spur Hx of tonsillectomy Family History Mother Depression Alcohol abuse Anxiety Gallbladder disease S/P coronary artery stent placement Grandmother Breast cancer Myocardial infarction Diabetes Grandfather Colon cancer Back problem Heart disease Aneurysm Father Back problem Hypothyroidism Denies family history of Ovarian cancer Prostate cancer Social History Smoking Status: Current some day smoker Tobacco Type: Cigarettes Second Hand Exposure: No; Do You Dip or Chew Tobacco: No; Tobacco Cessation Education Requested by Patient: No Hx Alcohol Use: Yes Alcohol type: beer Alcohol Intake Frequency: Monthly or Less Hx Substance Use: No Preferred Language: [place] Communication Ability: Effective Visual Impairment: No Limitations Hearing Ability: Normal Retail Event And Sales Assistant Required: No Beliefs That Will Affect Care: None marital status: Current Living Situation: Spouse current occupational status: employed current occupation: [employer] How many Children do You have Comment: 3 step children Other Information That Helps Us Care for You: No Feels Safe at Home: Yes Safety Concerns: Feels Safe At This Time Childhood Exposure to Second-Hand Smoke: Yes Diet: regular Diet Comment: regular caffeine: Yes during the past year weight has: remained stable Dental Care, Regularly: Yes Physical Activity Frequency: Daily Seatbelt Use: always Sunscreen Use: Yes Assistive Devices: None Review of Systems Review of Systems: All systems reviewed & are unremarkable except as noted in HPI & below Physical Exam Physical Exam: General: WD/WN male sitting up in bed, at bedside, NAD HEENT: head normocephalic, atraumatic, mmm, trachea midline Resp: CTA, no w/c/r, on room air CV: RRR, no significant m/r/g, no pitting edema/calf tenderness GI: +BS, slight distension, appropriately tender to palpation around incisions, no guarding/rigidity : no roldan MSK/Neuro: no focal deficits, no slurred speech, following commands as able, CN intact grossly Results & Data Results & Data Vital Signs (Past 12 Hours) Vital Signs Temp Pulse Pulse Pulse Resp BP BP 06/21/23 06:54 78 06/21/23 06:44 36.4 C L 77 18 95/62 L 06/21/23 05:19 81 125/74 06/21/23 06:26 36.5 C 72 92/60 L 06/21/23 03:59 36.7 C 78 16 110/68 06/21/23 01:34 36.7 C 72 16 131/81 06/21/23 00:00 36.6 C 73 16 141/92 H 06/21/23 00:32 36.7 C 64 16 131/81 06/21/23 00:00 36.6 C 73 16 141/92 H 06/20/23 23:30 36.6 C 68 18 148/88 H 06/20/23 23:10 36.3 C L 78 20 06/20/23 23:10 149/102 H 06/20/23 23:00 36.1 C L 82 19 06/20/23 23:00 144/97 H 06/20/23 22:50 85 20 06/20/23 22:50 149/100 H 06/20/23 22:46 91 H 15 06/20/23 22:46 36.3 C L 152/99 H 06/20/23 22:45 90 12 06/20/23 21:00 83 18 BP Pulse Ox O2 Del Method 06/21/23 06:54 06/21/23 06:44 96 Room Air 06/21/23 05:19 97 Room Air 06/21/23 06:26 95 Room Air 06/21/23 03:59 96 Room Air 06/21/23 01:34 98 Room Air 06/21/23 00:00 98 Room Air 06/21/23 00:32 98 Room Air 06/21/23 00:00 98 Room Air 06/20/23 23:30 96 Room Air 06/20/23 23:10 97 Room Air 06/20/23 23:10 06/20/23 23:00 98 06/20/23 23:00 06/20/23 22:50 97 06/20/23 22:50 06/20/23 22:46 97 06/20/23 22:46 06/20/23 22:45 06/20/23 21:00 151/100 H 99 Laboratory Results 06/21/23 06/21/23 06/21/23 Range/Units 06:04 06:04 05:56 WBC 17.95 H (4.8-10.8) K/ul RBC 3.91 L (4.70-6.10) M/uL Hgb 13.4 L (14.0-18.0) g/dl Hct 37.6 L (42.0-52.0) % MCV 96.2 (80.0-100.0) fL MCH 34.3 H (25.0-34.0) pg MCHC 35.6 (32.0-36.0) g/dL RDW Std Deviation 41.6 (36.4-46.3) fL RDW Coeff of Alisa 11.9 (11.5-14.5) % Plt Count 227 (130-400) K/uL MPV 10.3 (9.4-12.4) fL Immature Gran % (Auto) 0.4 % Neut % (Auto) 85.9 % Lymph % (Auto) 7.6 % Posey % (Auto) 5.8 % Eos % (Auto) 0.1 % Baso % (Auto) 0.2 % Neut # (Auto) 15.41 H (1.40-6.50) K/uL Lymph # (Auto) 1.36 (1.2-3.4) K/uL Posey # (Auto) 1.05 H (0.11-0.59) K/uL Eos # (Auto) 0.01 (0-0.50) K/uL Baso # (Auto) 0.04 (0-0.2) K/uL Immature Gran # (Auto) 0.08 (0.01-0.20) K/uL Sodium 134 L (136-145) mmol/L Potassium 4.2 (3.5-5.1) mmol/L Chloride 103 (98-107) mmol/L Carbon Dioxide 22 (21-32) mmol/L Anion Gap 9 (3-11) BUN 18 (6-23) mg/dl Creatinine 1.29 (0.6-1.4) mg/dl Est Cr Clr Drug Dosing 80.9 ml/min Est GFR ( Amer) 76.6 ml/min Est GFR (Non-Af Amer) 66.1 ml/min BUN/Creatinine Ratio 14.0 (10-20) Glucose 182 H (70-99(Fasting)) mg/dl POC Glucose 171 H (70-99) mg/dl Calcium 9.4 (8.6-10.3) mg/dl Magnesium 2.0 (1.7-2.4) mg/dl Total Bilirubin 1.5 H (0.2-1.0) mg/dl AST 27 (13-39) U/L ALT 36 (7-52) U/L Alkaline Phosphatase 75 (34-104) U/L Troponin I High Sens 6.0 (0-20) pg/ml Total Protein 6.9 (6.0-8.3) gm/dl Albumin 4.1 (3.4-5.0) gm/dl Globulin 2.8 (2.5-4.0) gm/dl Albumin/Globulin Ratio 1.5 (0.9-2) Lipase (11-82) U/L Urine Color Urine Appearance (Clear) Urine pH (4.5-7.5) Ur Specific Thorndike (1.000-1.030) Urine Protein (Negative) Urine Glucose (UA) (Negative) Urine Ketones (Negative) Urine Blood (Negative) Urine Nitrite (Negative) Urine Bilirubin (Negative) Urine Urobilinogen (Negative) Ur Leukocyte Esterase (Negative) Urine RBC (0-4) /hpf Urine WBC (0-5) /hpf Ur Epithelial Cells (0-5) /lpf Urine Bacteria (Negative) 06/20/23 06/20/23 06/20/23 Range/Units 19:40 19:40 19:30 WBC 9.34 (4.8-10.8) K/ul RBC 4.35 L (4.70-6.10) M/uL Hgb 14.5 (14.0-18.0) g/dl Hct 41.7 L (42.0-52.0) % MCV 95.9 (80.0-100.0) fL MCH 33.3 (25.0-34.0) pg MCHC 34.8 (32.0-36.0) g/dL RDW Std Deviation 41.5 (36.4-46.3) fL RDW Coeff of Alisa 11.9 (11.5-14.5) % Plt Count 183 (130-400) K/uL MPV 10.0 (9.4-12.4) fL Immature Gran % (Auto) 0.2 % Neut % (Auto) 72.0 % Lymph % (Auto) 13.6 % Posey % (Auto) 12.6 % Eos % (Auto) 1.1 % Baso % (Auto) 0.5 % Neut # (Auto) 6.72 H (1.40-6.50) K/uL Lymph # (Auto) 1.27 (1.2-3.4) K/uL Posey # (Auto) 1.18 H (0.11-0.59) K/uL Eos # (Auto) 0.10 (0-0.50) K/uL Baso # (Auto) 0.05 (0-0.2) K/uL Immature Gran # (Auto) 0.02 (0.01-0.20) K/uL Sodium 138 (136-145) mmol/L Potassium 4.0 (3.5-5.1) mmol/L Chloride 104 (98-107) mmol/L Carbon Dioxide 27 (21-32) mmol/L Anion Gap 7 (3-11) BUN 17 (6-23) mg/dl Creatinine 1.28 (0.6-1.4) mg/dl Est Cr Clr Drug Dosing 81.5 ml/min Est GFR ( Amer) 77.3 ml/min Est GFR (Non-Af Amer) 66.7 ml/min BUN/Creatinine Ratio 13.3 (10-20) Glucose 97 (70-99(Fasting)) mg/dl POC Glucose (70-99) mg/dl Calcium 9.7 (8.6-10.3) mg/dl Magnesium (1.7-2.4) mg/dl Total Bilirubin 1.1 H (0.2-1.0) mg/dl AST 26 (13-39) U/L ALT 38 (7-52) U/L Alkaline Phosphatase 79 (34-104) U/L Troponin I High Sens (0-20) pg/ml Total Protein 7.6 (6.0-8.3) gm/dl Albumin 4.6 (3.4-5.0) gm/dl Globulin 3.0 (2.5-4.0) gm/dl Albumin/Globulin Ratio 1.5 (0.9-2) Lipase 14 (11-82) U/L Urine Color Yellow Urine Appearance Clear (Clear) Urine pH 6.5 (4.5-7.5) Ur Specific Thorndike 1.006 (1.000-1.030) Urine Protein Negative (Negative) Urine Glucose (UA) Negative (Negative) Urine Ketones Negative (Negative) Urine Blood Trace H (Negative) Urine Nitrite Negative (Negative) Urine Bilirubin Negative (Negative) Urine Urobilinogen Negative (Negative) Ur Leukocyte Esterase Trace H (Negative) Urine RBC 0-4 (0-4) /hpf Urine WBC 0-5 (0-5) /hpf Ur Epithelial Cells 0-5 (0-5) /lpf Urine Bacteria Negative (Negative) Diagnostic Findings Abdomen/Pelvis CT 06/20/23 18:36 CR Exam(s): CT ABDOMEN + PELVIS With Contrast IV Amt: 90 ml opti 320 EXAM: CT Abdomen and Pelvis With Intravenous Contrast CLINICAL HISTORY: Reason for exam: RLQ abd pain. TECHNIQUE: Axial computed tomography images of the abdomen and pelvis with intravenous contrast. CTDI is 17.77 mGy and DLP is 982.8 mGy-cm. Automated exposure control was utilized for the study. A dose lowering technique was utilized adhering to the principles of ALARA. CONTRAST: Patient received 90 ml opti 320 of IV contrast COMPARISON: No relevant prior studies available. FINDINGS: Lung bases: Unremarkable. No mass. No consolidation. ABDOMEN: Liver: Unremarkable. No mass. Gallbladder and bile ducts: Unremarkable. No calcified stones. No ductal dilation. Pancreas: Unremarkable. No mass. No ductal dilation. Spleen: Unremarkable. No splenomegaly. Adrenals: Unremarkable. No mass. Kidneys and ureters: Unremarkable. No solid mass. No hydronephrosis. Stomach and bowel: Unremarkable. No obstruction. No mucosal thickening. PELVIS: Appendix: Positive for acute appendicitis, consisting of a distended appendix measuring up to 13 mm with circumferential wall thickening and mild periappendiceal fat stranding. Bladder: Unremarkable. No mass. Reproductive: Unremarkable as visualized. ABDOMEN and PELVIS: Intraperitoneal space: Unremarkable. No free air. No significant fluid collection. Bones/joints: Displaced narrowing at L5-S1. No acute fracture. No dislocation. Soft tissues: Unremarkable. Vasculature: Unremarkable. No abdominal aortic aneurysm. Lymph nodes: Unremarkable. No enlarged lymph nodes. IMPRESSION: Positive for acute appendicitis, consisting of a distended appendix measuring up to 13 mm with circumferential wall thickening and mild periappendiceal fat stranding. Communications: Verify Receipt Electronically signed by: Mike Mcknight MD 06/20/23 21:02 PM Chest X-Ray 06/21/23 06:05 XR chest 1V portable HISTORY: 47 years-old Male near syncope acute syncope COMPARISON: 02/09/2008 TECHNIQUE: AP view of the chest FINDINGS: Cardiomediastinal and hilar silhouettes are within normal limits. No pneumothorax, pleural effusion, airspace consolidation or pulmonary edema. Bones appear normal. IMPRESSION: No acute process. ACT 112: Negative or not required by law. The above report was generated using voice recognition software. It may contain grammatical, syntax or spelling errors. Electronically signed by: Jude Tatum M.D. 06/21/2023 7:22 AM PG Care Time/CCT Total # of Minutes Spent Total Time Spent with Patient: Total time spent is greater than 50% in coordination of care (as documented) at patient's floor/unit and/or counseling patient: Coding Level of Care Code 42511 IN/OBS CONSULT LVL 3,45M Diagnoses Acute appendicitis K35.80 Depression F32.A Syncopal episodes R55 Symptoms consistent with irritable bowel syndrome K58.9 Vitamin D deficiency E55.9
[2023-06-21] MEDS ORDERED: buPROPion XL 300 MG TABCR PO SCH (09:00)
[2023-06-21] MEDS ORDERED: FAMOTIDINE 20 MG in SYRINGE 3 ML IV ONE (09:32)
[2023-06-21] MEDS: SODIUM CHLORIDE 0.9% 1000ML 1,000 ML IV SCH (12:42)
[2023-06-21 12:48] LABS: Basophils # (auto) 0.02 K/uL (0.00-0.20); Basophils % (auto) 0.2 %; Eosinophils # (auto) 0.01 K/uL (0.00-0.50); Eosinophils % (auto) 0.1 %; Hematocrit (blood only) 32.8 % (42.0-52.0); Hemoglobin 11.6 g/dl (14.0-18.0); Immature Granulocytes # (auto) 0.05 K/uL (0.01-0.20); Immature Granulocytes % (auto) 0.4 %; Lymphocytes # (auto) 0.78 K/uL (1.20-3.40); Lymphocytes % (auto) 6.7 %; Mean Corpuscular Hemoglobin 33.4 pg (25.0-34.0); Mean Corpuscular Hgb Conc 35.4 g/dL (32.0-36.0); Mean Corpuscular Volume 94.5 fL (80.0-100.0); Mean Platelet Volume 10.5 fL (9.4-12.4); Monocytes # (auto) 0.75 K/uL (0.11-0.59); Monocytes % (auto) 6.4 %; Neutrophils # (auto) 10.11 K/uL (1.40-6.50); Neutrophils % (auto) 86.2 %; Platelet Count 192 K/uL (130-400); RDW Coefficient of Variation 11.9 % (11.5-14.5); RDW Standard Deviation 41.4 fL (36.4-46.3); Red Blood Count 3.47 M/uL (4.70-6.10); White Blood Count 11.72 K/ul (4.8-10.8)
[2023-06-21 13:56] LABS: Appearance Urine Clear (Clear); Bilirubin Urine Negative (Negative); Blood Urine Negative (Negative); Color Urine Yellow; Glucose Urine UA Negative (Negative); Ketones Urine 1+ (Negative); Leukocyte Esterase Urine Negative (Negative); Nitrite Urine Negative (Negative); Protein Urine Negative (Negative); Specific Gravity Urine 1.029 (1.000-1.030); Urobilinogen Urine Negative (Negative); pH Urine 5.5 (4.5-7.5)
--- NOTE | 2023-06-21 17:49 | Electrocardiogram Report ---
Test Reason : Blood Pressure : / mmHG Vent. Rate : 072 BPM Atrial Rate : 072 BPM P-R Int : 150 ms QRS Dur : 080 ms QT Int : 406 ms P-R-T Axes : 065 075 067 degrees QTc Int : 444 ms Normal sinus rhythm Normal ECG No previous ECGs available Confirmed by Anthony Horne ([id number]) on 06/21/2023 5:49:10 PM Referred By: REFERRED SELF Confirmed By:Anthony Horne
[2023-06-22] MEDS: SODIUM CHLORIDE 0.9% 1000ML 1,000 ML IV SCH (00:42)
[2023-06-22] MEDS: PIPERACILLIN/TAZOBACTAM 4.5 GM in DEXTROSE 5% 100 ML IV SCH (04:03)
--- NOTE | 2023-06-22 06:32 | Surgery Progress Note ---
Date of Service June 22, 2023 Assessment & Plan (1) S/P laparoscopic appendectomy: Plan: Episode of syncope approximately 24 hours ago Has done well throughout the afternoon and overnight with no significant syncope or dizziness He has been up and around Voiding well Tolerating his diet We will Hep-Lock his IV, see how he does this a.m.-May consider discharge later today Check a.m. lab-expect H&H to drop some but should stabilize-likely had some augustus operative bleeding at the operative site Clinically he is doing well Admission and Anticipated Discharge Date Admission Date: June 20, 2023 Results & Data Vital Signs (Past 12 Hours) Vital Signs Temp Pulse Pulse Resp BP Pulse Ox O2 Del Method 06/22/23 04:05 36.8 C 84 18 119/68 95 Room Air 06/21/23 22:04 84 06/21/23 23:28 37.1 C 87 16 104/65 96 Room Air 06/21/23 19:26 36.9 C 87 16 124/78 97 Room Air PG Care Time/CCT Total # of Minutes Spent Total Time Spent with Patient: Total time spent is greater than 50% in coordination of care (as documented) at patient's floor/unit and/or counseling patient: Coding Level of Care Code None Diagnoses S/P laparoscopic appendectomy Z90.49
[2023-06-22 07:10] LABS: Basophils # (auto) 0.07 K/uL (0.00-0.20); Basophils % (auto) 0.7 %; Eosinophils # (auto) 0.19 K/uL (0.00-0.50); Hematocrit (blood only) 28.9 % (42.0-52.0); Immature Granulocytes # (auto) 0.03 K/uL (0.01-0.20); Immature Granulocytes % (auto) 0.3 %; Mean Corpuscular Hemoglobin 33.7 pg (25.0-34.0); Mean Corpuscular Hgb Conc 34.6 g/dL (32.0-36.0); Mean Corpuscular Volume 97.3 fL (80.0-100.0); Mean Platelet Volume 10.2 fL (9.4-12.4); Monocytes # (auto) 1.18 K/uL (0.11-0.59); Monocytes % (auto) 12.4 %; Neutrophils # (auto) 6.13 K/uL (1.40-6.50); Neutrophils % (auto) 64.6 %; Platelet Count 169 K/uL (130-400); RDW Coefficient of Variation 12.2 % (11.5-14.5); RDW Standard Deviation 43.1 fL (36.4-46.3); Red Blood Count 2.97 M/uL (4.70-6.10)
--- NOTE | 2023-06-22 07:53 | Hospitalist Progress Note ---
Date of Service June 22, 2023 Assessment & Plan (1) Acute appendicitis: Plan: POD#1 s/p Laparoscopic Appendectomy(Not Applicable) - Alexis Pond MD, FACS. EBL 5cc IV Zosyn NS @ 100cc/hr per primary service Pain control/bowel regimen/PT/OT per primary service DVT proph: SCDs Developed episode of syncope this morning while attempting to use bathroom. Suspect vasovagal in nature, similar episode in past w/ straining but didn't pass out. Some blood noted on toilet paper/around stool, but not filling bowel. No heavy NSAID/alcohol use.. He reports he wasn't trying to have BM but rather urinate. No roldan w/ procedure reported. ?micurition syncopal also not excluded. NO significant murmur on exam/hypoxia to suggest valvular in nature or PE at present. He did note when injuring finger in the past/saw blood he also had an episode of feeling like he was going to pass out. Leukocytosis suspected reactive, no fevers. CXR clear on check. Can check UA for completeness, fecal occult. Reports having c-scope ~10 years ago that was unremarkable Pepcid IVP x 1, continue daily. No dark stools/melena to suggest UGIB at present RN to obtain repeat orthostatics, remains on IVF per primary service. Of note, recently had his wellbutrin increased from 150 to 300mg daily for depression/fatigue and did report increased issues with sleeping/anxiety/feeling on edge. Decreased to 150mg for AM and consider titrating off w/ PCP/alternative agent 06/22 --doing well, no further issues. Feeling well/stable for discharge. BP 122/78, no further syncope. Discussed f/u PCP about further titrations of wellbutrin/change to alternative agent. Messaged primary as patient feeling stable for discharge. Hgb 10 from 11.6 but had been on IVF for the hypotension/syncope and further bleeding reported. F/u PCP/referral to GI outpatient if ongoing issues w/ bleeding but rec bowel regimen to prevent constipation. Suspect was more from hemorrhoidal bleeding from straining. (2) Depression: Plan: continue wellbutrin. reports issues w/ sleeping as well and recent increase from 150 to 300mg daily discussed fatigue could have been from his bad appendix Decreased to 150mg po daily , consider tapering off w/ PCP and consideration for alternative agent -- discussed to follow up with PCP (3) Syncopal episodes: Plan: as above, suspect vasovagal in nature monitoring on telemetry, checking orthostatics. Doing well this morning during eval, to continue to monitor for any issues -- repeat orthostatics normal. no further syncope (4) Symptoms consistent with irritable bowel syndrome: Plan: monitor bowel movements, fecal occult ordered but not obtained prior to discharge consider GI in f/u outpatient given blood in stool but suspect was from hemorrhoidal bleeding If ongoing issues in f/u PCP would rec f/u GI for further eval. Discussed pepcid for reflux symptoms, not protonix given no melena/upper abdominal symptoms/pain. (5) Vitamin D deficiency: Plan Thank you for allowing hospitalist service to participate in the care of Mr Baxter. Hospitalist service will sign off. Please call with any questions/concerns. Admission and Anticipated Discharge Date Admission Date: June 20, 2023 Supervising Physician Co-Signing Physician Notes The patient was not seen by me. The chart was reviewed. Case discussed with GLADYS Ahuja. Agree with assessment and plan Subjective Eval this morning, doing well. No further sx/syncope. Discussed cutting wellbutrin, he is agreeable. Discussed follow up PCP/alternative agent and starting something while weaning off. Pain controlled. No fever/chills, chest pain/shortness of breath. Pain controlled w/o opiates. Planning for discharge today. Will plan to send rx for pepcid., can use as needed. Questions/concerns addressed at this time. Physical Exam Physical Exam: General: WD/WN male sitting up in bed, NAD HEENT: head normocephalic, atraumatic, mmm, trachea midline Resp: CTA, no w/c/r, on room air CV: RRR, no significant m/r/g, no pitting edema/calf tenderness GI: +BS, slight distension (decreased) appropriately tender to palpation around incisions, no active drainage/erythema, no guarding/rigidity : no roldan MSK/Neuro: no focal deficits, no slurred speech, following commands as able, CN intact grossly Results & Data Results & Data Vital Signs (Past 12 Hours) Vital Signs Temp Pulse Pulse Resp BP BP Pulse Ox 06/22/23 07:29 85 06/22/23 07:05 36.5 C 85 19 122/80 96 06/22/23 04:05 36.8 C 84 18 119/68 95 06/21/23 22:04 84 06/21/23 23:28 37.1 C 87 16 104/65 96 O2 Del Method 06/22/23 07:29 06/22/23 07:05 Room Air 06/22/23 04:05 Room Air 06/21/23 22:04 06/21/23 23:28 Room Air Laboratory Results 06/22/23 06/22/23 06/22/23 Range/Units 12:05 06:38 06:38 WBC 9.50 (4.8-10.8) K/ul RBC 2.97 L (4.70-6.10) M/uL Hgb 10.0 L (14.0-18.0) g/dl Hct 28.9 L (42.0-52.0) % MCV 97.3 (80.0-100.0) fL MCH 33.7 (25.0-34.0) pg MCHC 34.6 (32.0-36.0) g/dL RDW Std Deviation 43.1 (36.4-46.3) fL RDW Coeff of Alisa 12.2 (11.5-14.5) % Plt Count 169 (130-400) K/uL MPV 10.2 (9.4-12.4) fL Immature Gran % (Auto) 0.3 % Neut % (Auto) 64.6 % Lymph % (Auto) 20.0 % Dolores % (Auto) 12.4 % Eos % (Auto) 2.0 % Baso % (Auto) 0.7 % Neut # (Auto) 6.13 (1.40-6.50) K/uL Lymph # (Auto) 1.90 (1.20-3.40) K/uL Dolores # (Auto) 1.18 H (0.11-0.59) K/uL Eos # (Auto) 0.19 (0.00-0.50) K/uL Baso # (Auto) 0.07 (0.00-0.20) K/uL Immature Gran # (Auto) 0.03 (0.01-0.20) K/uL Sodium 139 (136-145) mmol/L Potassium 3.9 (3.5-5.1) mmol/L Chloride 108 H (98-107) mmol/L Carbon Dioxide 28 (21-32) mmol/L Anion Gap 3 (3-11) BUN 14 (6-23) mg/dl Creatinine 1.30 (0.6-1.4) mg/dl Est Cr Clr Drug Dosing 80.2 ml/min Est GFR ( Amer) 75.8 ml/min Est GFR (Non-Af Amer) 65.4 ml/min BUN/Creatinine Ratio 10.8 (10-20) Glucose 106 H (70-99(Fasting)) mg/dl Calcium 8.5 L (8.6-10.3) mg/dl Phosphorus 2.4 L (2.5-4.9) mg/dl Total Bilirubin 0.9 D (0.2-1.0) mg/dl AST 24 (13-39) U/L ALT 31 (7-52) U/L Alkaline Phosphatase 58 (34-104) U/L Total Protein 6.1 (6.0-8.3) gm/dl Albumin 3.6 (3.4-5.0) gm/dl Globulin 2.5 (2.5-4.0) gm/dl Albumin/Globulin Ratio 1.4 (0.9-2) Stool Occult Bld Scrn Negative (Negative) PG Care Time/CCT Total # of Minutes Spent Total Time Spent with Patient: Total time spent is greater than 50% in coordination of care (as documented) at patient's floor/unit and/or counseling patient: Coding Level of Care Code 85204 SUB INP/OBS CARE 2/35MIN Diagnoses Acute appendicitis K35.80 Depression F32.A Syncopal episodes R55 Symptoms consistent with irritable bowel syndrome K58.9 Vitamin D deficiency E55.9
[2023-06-22] MEDS ORDERED: buPROPion XL 150 MG TABCR PO SCH (09:00)
[2023-06-22] MEDS ORDERED: DOCUSATE SODIUM/SENNA 50/8.6MG TAB PO SCH (09:00)
[2023-06-22] MEDS ORDERED: MAGNESIUM HYDROXIDE SUSP 30 ML UDC PO SCH (09:00)
[2023-06-22] MEDS ORDERED: FAMOTIDINE 20 MG in SYRINGE 3 ML IV SCH (09:00)
[2023-06-22 11:20] LABS: Albumin Level 3.6 gm/dl (3.4-5.0); Bilirubin,Total 0.9 mg/dl (0.2-1.0); Calcium 8.5 mg/dl (8.6-10.3); Potassium 3.9 mmol/L (3.5-5.1)
[2023-06-22 11:24] LABS: Albumin Globulin Ratio 1.4 (0.9-2); BUN Creatinine Ratio 10.8 (10-20); Creatinine Clr Calc Pharmacy 80.2 ml/min; Est GFR (African American) 75.8 ml/min; Est GFR (Non-African American) 65.4 ml/min; Globulin 2.5 gm/dl (2.5-4.0); Phosphorus 2.4 mg/dl (2.5-4.9); Total Protein 6.1 gm/dl (6.0-8.3)
--- NOTE | 2023-06-26 06:33 | Discharge Summary ---
Date of Service June 26, 2023 Admission HPI Per Admitting Provider This is a 47-year-old female who developed abdominal pain proximally 24 hours ago. He says the pain is primary located in the right lower quadrant without radiation. He notes the pain is worse with palpation of his abdomen and seems to be slightly better when he lies still. He has not had any fevers. He does also deny nausea or vomiting. He denies ever having any abdominal surgeries in the past Since arrival to the hospital patient has had labs and imaging which independent reviewed. A CT scan of the abdomen showed the patient had a distended appendix measuring approximate 13 mm with wall thickening and mild periappendiceal fat stranding. Labs include a CBC her white blood cell count, hemoglobin, platelet count were normal. His hematocrit was slightly low at 41.7. Chemistry profile showed sodium, potassium, BUN, and creatinine were normal. There is no elevation of patient's LFTs other than a slight elevation of the total bilirubin at 1.1. His lipase is not elevated. Urinalysis did show trace leukocyte Estrace but was otherwise not indicative of infection. At the time of my interview he was resting comfortably in bed he was in no distress. Admission Exam Per Admitting Provider Patient is awake and alert and his vital signs are stable He is breathing comfortably His heart rate is normal His abdomen is soft but he does have right lower quadrant tenderness to palpation consistent with peritoneal irritation Extremities are warm without evidence of rash Principal Diagnosis Acute appendicitis Status post laparoscopic appendectomy Syncopal episode Discharge Exam Patient is awake and alert walking around the hallway in his room His vital signs are stable with normal heart rate He is breathing comfortably in no distress His abdomen is soft Extremities are warm Discharge Data Allergies Allergy/AdvReac Type Severity Reaction Status Date / Time No Known Drug Allergies Allergy Verified 06/20/23 20:03 Consultations 06/20/23 21:24 Consult General Surgery Stat 06/21/23 06:24 Consult Hospitalist Stat Procedures Performed Operation Date: 06/20/23 22:00 Actual Procedures p Laparoscopic Appendectomy(Not Applicable) - Alexis Pond MD, FACS Ordered Studies 06/20/23 18:36 CT abd pelvis IV con only Stat Hospital Course (1) S/P laparoscopic appendectomy: Patient brought into the hospital through the emergency room where he was taken to the operating room He underwent laparoscopic appendectomy which he tolerated well Patient was up to the bathroom and did have a syncopal episode He was transferred to the PCU for monitoring His vital signs remained stable, he was seen by the medical team and followed closely There was some concern that his Wellbutrin dose was possibly too high for him He did have some gradual drop in his H&H but did not require any significant treatment He was felt stable for discharge home to be followed in the surgical office within 1 to 2 weeks Total Time Total Time Spent Total Time Spent (In Minutes): 20 Discharge Plan Discharge Items Patient Disposition: Home - Self-Care Reason For Visit: ACUTE APPENDICITIS Discharge Diagnosis: laparoscopic appendectomy Activity: Per Instructions section Activity Comment: light activity for 3-4 weeks Lifting: No more than 10 pounds Bathing Comment: may shower; no soaking in tubs/pools x 2 weeks Sexual Activity: When tolerated Exercise/Sports: Wait until after follow-up appointment Exercise Comment: wait 3-4 weeks Driving/Machine Use: no driving while taking narcotics for pain Non-emergency contact: Surgeon Call non-emergency contact if: you have any medication questions, your symptoms worsen, your pain is worsening, your pain is unusual for you, you have a fever, your temperature is above 101.5, your wound has increased redness, your wound has increased drainage and your wound pain has increased Follow-up/Referrals: Alexis Pond MD, FACS [Physician] - 07/05/23 9:30 am (Follow up scheduled on 07/05/23 @ 9:30am) Macrina Joshi DO [Primary Care Provider] - 06/28/23 10:40 am (Follow up scheduled on 06/28/23 @ 10:40) Diet: Regular Addtl Attending Provider Instructions: SPECIAL CARE INSTRUCTIONS: * Cover incisions and change daily for comfort/drainage. Avoid constipation- * May Use Senokot S and Milk of Magnesium twice daily as directed on the package * May use ibuprofen for pain as tolerated. * Expect some swelling and bruising. Call your doctor if: * Temperature above 101 degrees * Pain not relieved by pain medicine ordered * There is increased drainage or redness from any incision * You have any unanswered questions or concerns [phone]. FOLLOW UP VISIT: If not already scheduled, please call the office for a follow-up visit. For 2 weeksno sutures to remove OFFICE PHONE NUMBER: Dr. Pond Office Pending Studies at Discharge: Yes Studies:: surgical pathology Stand-Alone Forms: [facility], Smoking Cessation Medications and DC Order Prescriptions: New famotidine 20 mg tablet 20 mg PO DAILY Qty: 30 0RF amoxicillin-pot clavulanate 875-125 mg tablet 1 tab PO BID Qty: 10 0RF oxycodone 5 mg tablet 5 - 10 mg PO Q6H PRN (Reason: pain) Qty: 20 0RF Rx Instructions: May take 2 tablets every 6hrs but not more than 6 tablets/day I saw the patient today and they had surgery recently They are going to come into the office within 7 to 14 days Continued multivitamin [Multiple Vitamins] Tablet 1 tab PO DAILY cholecalciferol (vitamin D3) 25 mcg (1,000 unit) capsule 25 mcg PO DAILY fexofenadine 180 mg tablet 180 mg PO DAILY PRN (Reason: Allergy Symptoms) nicotine (polacrilex) 4 mg mini lozenge 4 mg buccal Q8H PRN (Reason: Smoking Cessation) Changed bupropion HCl 300 mg tablet extended release 24 hr 150 mg PO QAM Qty: 30 1RF Discharge Orders: Discharge Order (Routine); Ordered 06/22/23 Ordered By: Alexis Podn Admission Data Admit Date/Time: 06/20/23 22:41 Attending Provider: Alexis Pond Admit Provider: Alexis Pond Primary Care Provider: Macrina Joshi Other Providers: Alexis Pond ; Ирина Carty Robert R. Other Interventions: Discharge Summary Assessment (RN) Last Done: 06/22/23 12:41 Coding Level of Care Code 71277 IN/OBS DISCH 30 MIN/LESS Diagnoses S/P laparoscopic appendectomy Z90.49
== END 2023-06-22 13:43 | disposition home or self-care (01) | DRG 342 ==
LOC: ED 18:17 → OR 21:42 → 3N 22:41 → INTOOBSV 22:41 → 2S 06-21 06:42
DX: K35.80 Unspecified acute appendicitis; Z79.899 Other long term (current) drug therapy; I10 Essential (primary) hypertension; K92.1 Melena; F17.290 Nicotine dependence, other tobacco product, uncomplicated; R55 Syncope and collapse